=== PATIENT | male | born 1990 | race Caucasian/White ===

== ENCOUNTER 2023-07-04 10:28 | Outpatient (REF) | payer OTHER, SELFPAY ==
[2023-07-04 11:12] LABS: SARS-CoV-2 Ag NEGATIVE (NEGATIVE)
[2023-07-04 15:28] LABS: SARS-CoV-2 NAA NOT DETECTED (NOT DETECTE)
== END 2023-07-04 10:29 | disposition home or self-care (01) ==
LOC: LAB 10:28
PROVIDERS: PCP Family Medicine; Visit Provider Family Medicine
DX: Z20.822 Contact with and (suspected) exposure to COVID-19 (principal); R05.1 Acute cough
CPT/HCPCS: 87635; 87811

== ENCOUNTER 2023-09-26 14:26 | Outpatient (REF) | payer OTHER, SELFPAY ==
--- OUTSIDE RECORDS SUMMARY | 2023-09-26 14:31 | XMS_ITS | CCD ---
Author Name Unknown Address [address] [place] [address] Organization [facility] Care Team Providers Care Construction Trades Contractor Name Role Phone Valeri Jarrett Primary Care Provider [phone] DANE YEN Admitting Unavailable DANE YEN Attending Unavailable MC, DR CRENSHAW Primary Care Unavailable MC, DR CRENSHAW Admitting Unavailable MC, DR CRENSHAW Attending Unavailable MC, DR CRENSHAW Primary Care Unavailable DANE YEN Admitting Unavailable DANE YEN Attending Unavailable MC, DR CRENSHAW Primary Care Unavailable DR BELLE BROWN Consulting Unavailable DANE YEN Consulting Unavailable Problems Active Problems Problem Classification Problem Date Documented Da te Episodic/Chronic Immunizations and screening for infectious disease (1 source) Exposure to communicable disease; Translations: [Virus (organism)] Onset: 07-13-2020 Episodic Past or Other Problems Problem Classification Problem Date Documented Da te Episodic/Chronic Spondylosis; intervertebral disc disorders; other back problems (4 sources) Pain in thoracic spine; Translations: [PAIN IN THORACIC SPINE] Onset: 10-27-2020 Episodic Unclassified (1 source) Finding of body mass index; Translations: [Body mass index (observable entity)] Onset: 07-13-2020 Results Test Name Value Interpretation Reference Range Facil ity XR TSPINE 3 VIEWSon 10-26-19 21 XR TSPINE 3 VIEWS EXAMINATION: XR TSPINE 3 VIEWS HISTORY: Pain in thoracic spine ; chronic, intermittent pain between shoulder blades which is increasing in severity COMPARISON: No relevant comparison available. FINDINGS: BONES: No significant spondylosis, scoliosis, fracture, or visible bony lesion. DISC SPACES: No significant disc height narrowing, subluxation, or endplate abnormality. PARASPINOUS: Negative. No paraspinous abnormality is seen. OTHER: Negative. IMPRESSION: 1. No abnormal or suspicious findings to account for the patient's symptoms. Electronically authenticated by: BELLE BROWN Date: 2020-10-25 15:06 Normal [facility] Vital Signs Date Time Vital Sign Value Performing Clinician Nisa torres 07-13-2020 12:00-0500 BMI (Body Mass Index) 30.1 kg/m2 Valeri [facility] Work Phone: 07-13-2020 12:00-0500 Body weight 95.26 kg [facility] Work Phone: 07-13-2020 12:00-0500 BSA (Body Surface Area) 2.13 m2 [facility] Work Phone: 07-13-2020 12:00-0500 Height 177.8 cm [facility] Work Phone: Encounters Encounter Date Encounter Type Care Provider Facility Start: 09-27-[address] FLOWER BENTLEY Facility :[facility] Start: 10-27-2020 End: 11-29-2020 ambulatory DANE YEN Facility:[facility] Start: 10-25-2020 End: 10-26-2020 ambulatory DANE YEN Facility:[facility] Start: 07-13-2020 End: 07-13-2020 Telemedicine consultation with patient Valeri Jarrett Work Phone: [facility] Work Phone: Plan of Treatment Date Care Activity Detail Author Start: 09-07-2020 SARS-CoV-2, [facility] Work Phone: Payers Date Payer Category Payer Unknown [id number] [id number] 1990 Unknown [id number] [id number] 1990 Unknown [id number] [id number] [id number] 1957 Private Health Insurance [id number] 1957 Self-pay Social History Date Type Detail Facility Assertion Gender identity finding (finding) [facility] Work Phone: Assertion Finding of sexua l orientation (finding) [facility] Work Phone: Assertion Tobacco user (finding) [facility] Work Phone: Tobacco smoking status Unknown if ever smoked [facility] Work Phone: NEGATED: Highlighted row Assertion Exposure to pollution (event) [facility] Work Phone: Reason for Referral No Reason for Referral Recorded Assessments Findings Encounter Date Body mass index Telemedicine New Patient with Ca ssie [facility] 07/13/2020 Exposure to a viral disease Telemedicine New Pat ient with Valeri Luiza [facility] 07/13/2020 Instructions Instructions not supported for this document type No Instructions Recorded History of Present Illness History of Present Illness not supported for this document type No History of Present Illness Recorded Family History Includes: Family History in patient's chart No Family History RecordedNo Family History Records Found Review of System Review of Systems not supported for this document type No Review of Systems Recorded Physical Exam Physical Exam not supported for this document type No Physical Exam Recorded Advance Directives Includes: Current Advance Directives No Advance Directives RecordedNo Advanced Directives Records Found Summary Purpose Additional Source Comments Medical History (unrecognize d section and content) Includes: Medical History in patient's chartNo Medical History Recorded Evaluations & Outcomes (unre cognized section and content) Includes: Evaluations & Outcomes for active GoalsNo Outcomes Recorded (unrecognized sect ion and content) No Status Records Found INFORMATION SOURCE (unrecogn ized section and content) DATE CREATED AUTHOR 09/28/2021 The Zac gallardo FOR RECORDS PERTAINING TO PATIENTS WHO ARE OR HAVE BEEN ENROLLED IN A CHEMICAL DEPENDENCY/SUBSTANCEABUSE PROGRAM, SOME INFORMATION MAY BE OMITTED. This clinical summary was aggregated from multiple sources. Caution should be exercised in using it in the provision of clinical care. This summary normalizes information from multiple sources, and as a consequence, information in this document may materially change the coding, format and clinical context of patient data. In addition, data may be omitted in some cases. CLINICAL DECISIONS SHOULD BE BASED ON THE PRIMARY CLINICAL RECORDS. [facility]. provides no warranty or guarantee of the accuracy or completeness of information in this document.
[2023-09-26 15:43] LABS: SARS-CoV-2 Ag NEGATIVE (NEGATIVE)
[2023-09-27 15:21] LABS: SARS-CoV-2 NAA NOT DETECTED (NOT DETECTE)
== END 2023-09-26 14:27 | disposition home or self-care (01) ==
LOC: LAB 14:26
PROVIDERS: PCP Family Medicine; Visit Provider Family Medicine
DX: J21.9 Acute bronchiolitis, unspecified (principal)
CPT/HCPCS: 87635; 87811

== ENCOUNTER 2025-04-01 09:23 | Outpatient (OUT) | payer OTHER, SELFPAY ==
--- OUTSIDE RECORDS SUMMARY | 2025-04-01 04:27 | XMS_ITS ---
Author Organization The [facility] [place] Address [address] [place] [address] Care Team Providers Care Train Attendant Name Role Phone Abel Benítez Primary Care Provider [phone] REASON FOR VISIT repeat injections Encounters Encounter Location Date Provider Diagnosis [facility] [address] [place] [address] 04/01/2025 Abel Benítez Plan Of Treatment Next Appt Details Provider Name:Abel Benítez, 10:15:00 AM, [address] [place], [address], Progress Notes * Josh COPE DDOB:1990 (34 yo M)Acc No.[id number]:04/01/2025 Patient: Josh NICHOLS :1990 A ge:34 Y S ex:Male Address:[address] [place] [address] [address], [place] [address] * true * Date: Generated for Kimmyi padmini/Fahugog/eTransmitting on: 0 04/01/2025 09:31 AM EDT
--- OUTSIDE RECORDS SUMMARY | 2025-04-01 06:15 | XMS_ITS ---
Author Organization [facility] [place] Address [address] [place] [address] Care Team Providers Care Farmhand Name Role Phone Abel Benítez Primary Care Provider Allergies No Known Allergies REASON FOR VISIT repeat injections- given, Patient states he was feeling lightheaded and thought possibly his BP waselevated Medications Medication SIG (Take, Route, Frequency, Duration) Notes Start Date End Date Status tiZANidine HCl 4 MG 2 tabs Orally qhs fo r 30 days 04/01/2025 Active Meloxicam 15 MG 1 tablet Orally Once a day for 30 days 04/01/2025 Active Metoprolol Tartrate 50 MG 1 tablet with food Orally Twice a day for 30 days 04/01/2025 Active Social History Tobacco Use: Social History Observation Description Date Details (start date - stop date) Unknown Tobacco use other than smoking: Question Answer Notes Are you an other tobacco user? Yes C HEWS Tobacco Control (Standard) Question Answer Notes Tobacco use: Uses tobacco in other forms Vital Signs Blood pressure systolic 178 mm Hg 04/01/20 25 Blood pressure diastolic 110 mm Hg 025 Height 70 in 04/01/2025 Encounters Encounter Location Date Provider Diagnosis [facility] [address] [place] [address] 04/01/2025 Abel Benítez Cervical radiculopat hy M54.12 and Hypertension I10 Assessments Encounter Date Diagnosis (ICD Code) Assessment Notes Treatment Notes Treatment Clinical Notes Section Notes 04/01/2025 Cervical radiculopathy (ICD-10 - M54.12) 04/01/2025 Hypertension (ICD-10 - I10) statrtitn meds Plan Of Treatment Medication Medication Name Sig Start Date Stop Date Notes tiZANidine HCl 4 MG 2 tabs Orally qhs for 30 days 04/01/20 25 Meloxicam 15 MG 1 tablet Orally Once a day for 30 days 04/01/2025 Metoprolol Tartrate 50 MG 1 tablet with food Orally Twice a day for 30 days 04/01/2025 Treatment Notes Assessment Notes Hypertension statrtitn meds Pending Test Test Name Order Date XR cervical spine 2-3V 04/01/2025 Next Appt Details Provider Name:Abel Benítez, 10:15:00 AM, [address] [place], [address], Medications Administered Medication Instructions Date of Administration Dosage Notes Ketorolac Tromethamine 04/01/2025 60 mg Orphenadrine Citrate 04/01/2025 60 mg Triamcinolone 40 mg/ml 04/01/2025 80 mg Progress Notes * Josh COPE DDOB:1990 (34 yo M)Acc No.[id number]:04/01/2025 UNLOCKED PROGRESS NOTE Progress Note Patient: Brandon ARRIETA Josh Solis Provider: Irma Benítez ([facility])MD :1990 A ge:34 Y S ex:Male Date:04/01/2025 Address:[address] [place], [place] [id number] Check In:08:44 AM ESTCheck O ut:09:18 AM EST Subjective: * Chief Complaints: * 1 . Repeat injections- given. 2. Patient states he was feeling lightheaded and thought possibly his BP was elevated. * HPI: G eneral: ligh headed - BP high no fever - no chills - no uri symotoms bp high yeseterday - higher today. * ROS: E ENT: hearing changes d enies. v isual changes d enies.?non-healing mouth sores d enies. s wollen glands or neck lumps d enies. h oarseness d enies. s ore throat d enies. d ifficulty swallowing d enies. n ose bleeds d enies. n altagracia congestion d enies. e ar ache d enies. e ar discharge?denies. r inging in ears d enies. l ight sensitivity d enies. e ye pain d enies. b lurring d enies. e ye irritation d enies. d ouble vision d enies.?vision loss d enies. G eneral/Constitutional: Sweats: D enies. F atigue d enies. S leep problems d enies. A norexia d enies. M alaise d enies. W eight loss d enies.?Fatigue or Weakness d enies. F ever or Chills d enies. C ardiovascular: Shortness of Breath w/lying flat d enies. L ightheadedness/dizziness d enies. C hest tightness/ heavy pressure d enies. S welling of legs, ankles, or feet d enies. W aking up with shortness of breath d enies. C hest pain denies. P alpitations d enies. W eight gain d enies. R espiratory: Chronic or frequent cough d enies. C oughing up blood?denies. D ifficulty breathing d enies. P roductive cough d enies. S noring?denies. S hortness of breath that awakens from sleep (PND) d enies. C hest pain d enies. S putum production d enies. W heezing d enies. M usculoskeletal: Joint pain d enies. J oint Fluid d enies. B ack pain d enies. K nee pain d enies. N marisel pain d enies. J oint Stiffness d enies. M uscle cramps d enies. W eakness of muscles d enies. A rthritis d enies. M uscle aches d enies. P ain in shoulder(s) d enies. S wollen joints d enies. * Medical History: A cute thoracic back pain, Dyspnea, Insomnia. * Surgical History: D enies Past Surgical History. * Hospitalization/Major Diagno stic Procedure: D enies Past Hospitalization. * Family History: F ather: alive, type II diabetes, diagnosed with Diabetes mellitus without mention of complication, type II or unspecified type, not stated as uncontrolled, Unspecified essential hypertension. Mother: alive, type II diabetes, diagnosed with Diabetes mellitus without mention of complication, type II or unspecified type, not stated as uncontrolled, Unspecified essential hypertension. B rother(s): alive. S ister(s): alive. S on(s): alive. D aughter(s): alive. 1 brother(s) , 2 sister(s) - healthy. 1 son(s) , 1 daughter(s) - healthy. . * Social History: T obacco Use: T obacco Control (Standard) T obacco use: U ses tobacco in other forms Tobacco use other than smoking A re you an other tobacco user? Y es CHEWS * Medications: N one * Allergies: N .K.D.A. Objective: * Vitals: H t: 70 in, BP:178/110mm Hg, Ht-cm: 177.8 cm. * Examination: P hysical Exam: GENERAL: w ell developed, well nourished, in no acute distress. HEAD: n ormocephalic/atraumatic. EYES: p upils equal, round and reactive to light, conjunctivae and sclerae normal. EARS: n o deformity or lesion of external ear, canals and TM appear normal bilaterally, TM's intact, not inflamed with normal light reflex, hearing grossly normal to conversational speech. NOSE: n o deformity, discharge, inflammation, or lesions.? MOUTH: m ucous membranes moist, normal oropharynx and posterior pharynx without lesions or exudates, tongue normal, dentition normal. NECK: n marisel supple, no masses or palpable cervical nodes, trachea midline, thyroid without nodules, masses, tenderness, or enlargement. CHEST: n o chest wall deformity, no chest wall tenderness.? LUNGS: n ormal respiratory effort and clear to auscultation, no wheezes, rales, or rhonchi, good air exchange. CARDIO: r egular rate and rhythm, normal S1 and S2, nor murmur, rub, or gallop. PULSES: n ormal capillary refill. ABDOMEN: s oft, non-distended, non-tender, no masses. MUSCULOSKELETAL: n o deformity or scoliosis noted, normal range of motion, joints normal, no erythema, edema, effusion, or ecchymosis. EXTREMITY: n o clubbing, cyanosis, edema, or deformity with normal ROM in both upper and lower bilateral extremities. NEUROLOGIC: g rossly normal. SKIN: n o rashes, ulcerations, or suspicious lesions. LYMPH NODES: n o cervical adenopathy, nodes normal. MENTAL STATUS: a lert and oriented x3, normal mood and affect. Assessment: * Assessment: 1. C ervical radiculopathy - M54.12 (Primary) 2 . H ypertension - I10 ? Plan: * Treatment: 2. H ypertension Start Metoprolol Tartrate Tablet, 50 MG, 1 tablet with food, Orally, Twice a day, 30 days, 60, Refills 11. Notes: statrtitn meds * Therapeutic Injections: Triamcinolone 40 mg/ml : 80 mg (Route: Intramuscular) given by Mellisa Field SA on right gluteus (Cervical radiculopathy) Ketorolac Tromethamine : 60 mg (Route: Intramuscular) given by Mellisa Field SA on left gluteus (Cervical radiculopathy) Orphenadrine Citrate : 60 mg (Route: Intramuscular) given by Mellisa Field SA on left gluteus (Cervical radiculopathy) * Procedure Codes: J 3301 TMC ACET,PER 10MG., J2360 NORFLEX,UP TO 60MG., J1885 TORADOL, PER 15 MG, 40462 THERAP.INJ. OF MED. INTRAMUSCULAR OR SUBCUTANEOUS * * Electronic signature of Abel Benítez MD, [id number] on 04/01/2025 at 09:31 AM EDT Sign off status: Pending Visit Status: C HK (Check Out) * Provider: Irma Benítez ([facility])MD Date: 0 04/01/2025 Generated for Arlette washington/Pieter/Danielleitting on: 04/01/2025 09:31 AM EDT History and Physical Notes * HPI (History of Present Illness) Category Sub-Category Detail Notes Category Not es General ligh headed - BP high no fever - no chills - no uri symotoms bp high yeseterday - higher today Examination Category Sub-Category Detail Notes Category Not es Physical Exam GENERAL: well developed, well nourished, in no acute distress HEAD: normocephalic/atraum atic EYES: pupils equal, round and reactive to light, conjunctivae and sclerae normal EARS: no deformity or lesi on of external ear, canals and TM appear normal bilaterally, TM's intact, not inflamed with normal light reflex, hearing grossly normal to conversational speech NOSE: no deformity, discha rge, inflammation, or lesions MOUTH: mucous membranes pat st, normal oropharynx and posterior pharynx without lesions or exudates, tongue normal, dentition normal NECK: neck supple, no mass es or palpable cervical nodes, trachea midline, thyroid without nodules, masses, tenderness, or enlargement CHEST: no chest wall deform ity, no chest wall tenderness LUNGS: normal respiratory e ffort and clear to auscultation, no wheezes, rales, or rhonchi, good air exchange CARDIO: regular rate and rhy thm, normal S1 and S2, nor murmur, rub, or gallop PULSES: normal capillary ref ill ABDOMEN: soft, non-distended, non-tender, no masses RECTAL: MUSCULOSKELETAL: no deformity or scol iosis noted, normal range of motion, joints normal, no erythema, edema, effusion, or ecchymosis EXTREMITY: no clubbing, cyanosi s, edema, or deformity with normal ROM in both upper and lower bilateral extremities NEUROLOGIC: grossly normal SKIN: no rashes, ulceratio ns, or suspicious lesions LYMPH NODES: no cervical adenopat hy, nodes normal MENTAL STATUS: alert and oriented x 3, normal mood and affect
--- OUTSIDE RECORDS SUMMARY | 2025-04-01 09:32 | XMS_ITS | Patient Health Record ---
Author Organization The [facility] [place] Address [address] [place] [address] Care Team Providers Care Pipeline Controller Name Role Phone Abel Benítez Primary Care Provider Allergies No Known Allergies Results Component Value Reference Range Notes COVID-19, Flu A+B IH (Not ye t reviewed by provider) Interpretation: Performing Lab: Notes/Report: COVID NEG FLU A NEG FLU B NEG Control POS Reason For Referral No Information Medications Medication SIG (Take, Route, Frequency, Duration) [...] Tobacco use: Uses tobacco in other forms Problems Problem Type SNOMED Code ICD Code Onset Dates Problem Status W/U Status Risk Notes Problem Hypertension (78365147) Hypertension (I10) Active confirmed Problem Cervical radiculopathy (81481286) Cervical radiculopathy (M54.12) Active confirmed Problem Well adult (303893512) Well adult (Z00.00) Active confirmed Problem Otitis media of left ear (9104856196641252 ) Left otitis media (H66.92) Active confirmed Problem Acute bronchiolitis (5004303) Acute bronchiolitis (J21.9) Active confirmed Vital Signs Blood pressure diastolic 96 mm Hg 03/31/2025 Height 70 in 03/31/2025 Blood pressure systolic 178 mm Hg 03/31/2025 Weight 255.6 lbs 03/31/2025 BMI 36.67 kg/m2 03/31/2025 Encounters Encounter Location Date Provider Diagnosis [facility] [address] [place] [address] 04/01/2025 Abel Hoy [facility] [address] [place] [address] 07/16/2024 Abel Hoy Acute cough R05.1 an d Acute bronchitis, unspecified organism J20.9 [facility] [address] [place] [address] 03/31/2025 Abel Hoy Cervical radiculopat hy M54.12 [place] [address] [place] [address] 08/03/2024 Abel Hoy Well adult Z00.00 Assessments Encounter Date Diagnosis (ICD Code) Assessment Notes Treatment Notes Treatment Clinical Notes Section Notes 07/16/2024 Acute cough (ICD-10 - R05.1) 08/03/2024 Well adult (ICD-10 - Z00.00) 03/31/2025 Cervical radiculopathy (ICD-10 - M54.12) injections 07/16/2024 Acute bronchitis, unspecified organism (ICD-10 - J20.9) Rest and drink more liquids, especially water. You may use a humidifier or vaporizer to help keep the drainage moist. Rjsm-vbp-gtsvgow Nasal Saline may help the stuffy and runny nose. Use Ibuprofen and or Tylenol as needed for fever, chills, body aches or pain. Children 5 years old should not be given axaj-dcl-ixoxwkt cough and cold medications such as guaifenesin and dextromethorphan. If you're over age 5, you may try hrax-whs-qyfvdgn cold medications such as guaifenesin and dextromethorphan, or multi-symptom cold reliever such as Dayquil to help reduce the symptoms. Antibiotics have been prescribed. You should take these until completed and follow the directions. Antibiotics can sometimes cause upset stomach, and in rare cases, serious allergic reactions or serious gastrointestinal problems. If you start having severe abdominal pain, severe vomiting, or bloody diarrhea, you should be reevaluated by your physician or urgent care immediately. Follow up with your Primary Care Provider or return to clinic if symptoms do not improve within 3-5 days. If you develop severe symptoms such as shortness of breath, repeated vomiting, coughing up blood, or chest pain you should go to the emergency room or call 911 03/31/2025 Other Recommended to rest and use a heating pad on the area. Take NSAIDs for pain as needed Plan Of Treatment Pending Test Test Name Order Date CMP (COMPLETE METABOLIC PANEL) 3 HEMOGLOBIN A1C (GLYCO) 07/05/2023 INSULIN, TOTAL 07/05/2023 LIPID PANEL (CHOL/TRIG/HDL/LDL) 07/05/20 23 CBC WITH DIFF 07/05/2023 PSA, PROSTATE-SPECIFIC ANTIGEN 3 COVID-19, Flu A+B IH 07/16/2024 THYROID PANEL (T4/TSH/FREE T3) 3 Next Appt Details Provider Name:Abel Warren Jeremiahjose, 10:15:00 AM, [address] [place], [address], Insurance Providers Payer Name Payer Address Payer Phone Subscriber Number Group Number Insured Name Patient Relationship to Insured Coverage Start Date Coverage End Date [facility] [address] [place], [place] [id number] Josh Cope Self - patient is the insured Medications Administered Medication Instructions Date of Administration Dosage Notes Ketorolac Tromethamine 03/31/2025 60 mg Ketorolac Tromethamine 04/01/2025 60 mg Orphenadrine Citrate 03/31/2025 60 mg Orphenadrine Citrate 04/01/2025 60 mg Triamcinolone 40 mg/ml 07/16/2024 120 mg 12 0mg Triamcinolone 40 mg/ml 03/31/2025 120 mg Triamcinolone 40 mg/ml 04/01/2025 80 mg Medical (General) History Medical History History ICD Code Acute thoracic back pain M54.6 Dyspnea R06.00 Insomnia G47.00
--- NOTE | 2025-04-01 09:43 | XR_ITS ---
The [address] [address] Patient Name: JOSE LAYNE MRN: [id number] date: 1990 Sex: M Assigned Patient Location: [facility] Current Patient Location: [facility] Accession/Order Number: [id number] Exam Date: 04/01/2025 10:26 Report Date: 04/01/2025 10:28 At the request of: FLOWER BENTLEY MD Procedure: XR cervical spine 2-3V CERVICAL SPINE - 3 views: CLINICAL HISTORY: Neck pain and swelling on the left for the past couple months. No injury. COMPARISON: None AP, lateral and odontoid views were obtained. A marker was placed at the site of patient's swelling. C7 and the cervicothoracic junction are not well seen on the lateral view. There is no acute compression fracture or displacement. The disc spaces are maintained. No significant hypertrophy is seen.. The atlantoaxial relationship is maintained. There is no prevertebral soft tissue swelling. XR/XR cervical spine 2-3V IMPRESSION: NO ACUTE BONY FINDINGS. Impression dictated by: Corinne Starr M.D. 04/01/2025 10:28 AM Dictation Location: [employer] Electronically authenticated by: [id number] Date: 04/01/2025 10:28
== END 2025-04-01 09:24 | disposition home or self-care (01) ==
PROVIDERS: PCP Family Medicine; Visit Provider Family Medicine
DX: M54.12 Radiculopathy, cervical region (principal)
CPT/HCPCS: 72040

== ENCOUNTER 2025-04-07 08:44 | Outpatient (RCR) | payer OTHER, SELFPAY | END 2025-04-17 08:06 | disposition home or self-care (01) | LOC: PT 08:44 | PROVIDERS: PCP Family Medicine; Visit Provider Family Medicine | DX: M54.12 Radiculopathy, cervical region (principal) | CPT/HCPCS: 97010; 97014; 97035; 97140; 97162 ==